=== PATIENT | female | born 1995 | race Caucasian/White ===

== ENCOUNTER 2017-08-26 10:05 | Emergency (ER) | payer OTHER ==
[~2017-08-26] VITALS: Ht 165.1 cm; Wt 107.5 kg
[~2017-08-26 10:05] MED LIST: AMOXICILLIN500 M1 PO; CHLORASEPTIC177 ML MM; CYCLOBENZAPRINE10 MG PO; FLEXERIL10 MG PO; IBUPROFEN800 MG PO; METFORMIN HCL1000 MG PO; NORCO 5-325 TA1 EACH PO; OMEPRAZOLE20 M1 PO; TYLENOL325 MG PO; XULANE PATCH1 EACH TD; ZOFRAN4 MG PO
== END 2017-08-26 11:26 | disposition home or self-care (01) ==
LOC: ED 10:05
DX: N92.1 Excessive and frequent menstruation with irregular cycle (principal); Z91.040 Latex allergy status; Z79.899 Other long term (current) drug therapy
CPT/HCPCS: 81001; 84703; 85025; 99283

== ENCOUNTER 2021-01-19 17:02 | Emergency (ER) | payer BC ==
[~2021-01-19] VITALS: Ht 165.1 cm; Wt 117.9 kg
[2021-01-19] MEDS ORDERED: MONO-LINYAH1 EACH PO (17:40)
[2021-01-19] MEDS ORDERED: JANUVIA25 MG PO (17:40)
[2021-01-19] MEDS ORDERED: LISINOPRIL20 MG PO (17:41)
[2021-01-19] MEDS ORDERED: METFORMIN HCL500 M1 PO (17:41)
[2021-01-19] MEDS ORDERED: MELOXICAM7.5 MG PO (17:47)
[2021-01-19] MEDS ORDERED: MEDROL4 M1 PO (17:47)
== END 2021-01-19 18:54 | disposition home or self-care (01) ==
LOC: ED 17:02
DX: S66.912A Strain of unspecified muscle, fascia and tendon at wrist and hand level, left hand, initial encounter (principal); X50.9XXA Other and unspecified overexertion or strenuous movements or postures, initial encounter; Z91.040 Latex allergy status; E11.9 Type 2 diabetes mellitus without complications; Z79.84 Long term (current) use of oral hypoglycemic drugs; Z79.899 Other long term (current) drug therapy; I10 Essential (primary) hypertension
CPT/HCPCS: 29125; 73130; 99283-25; J1885

== ENCOUNTER 2021-02-08 13:29 | Emergency (ER) | payer OTHER, BC ==
[~2021-02-08] VITALS: Ht 165.1 cm; Wt 117.9 kg
[~2021-02-08 13:29] MED LIST changes: +JANUVIA25 MG PO; +LISINOPRIL20 MG PO; +MEDROL4 M1 PO; +MELOXICAM7.5 MG PO; +METFORMIN HCL500 M1 PO; +MONO-LINYAH1 EACH PO
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
== END 2021-02-08 14:09 | disposition home or self-care (01) ==
LOC: ED 13:29
DX: S13.9XXA Sprain of joints and ligaments of unspecified parts of neck, initial encounter (principal); R42 Dizziness and giddiness; Z91.040 Latex allergy status; Z79.899 Other long term (current) drug therapy; Z79.84 Long term (current) use of oral hypoglycemic drugs; V47.5XXA Car driver injured in collision with fixed or stationary object in traffic accident, initial encounter
CPT/HCPCS: 99283

== ENCOUNTER 2021-05-04 21:13 | Emergency (ER) | payer SELFPAY ==
[~2021-05-04] VITALS: Ht 165.1 cm; Wt 117.9 kg
[2021-05-04] MEDS ORDERED: ONDANSETRON ODT8 MG PO (22:46)
== END 2021-05-04 22:57 | disposition home or self-care (01) ==
LOC: ED 21:13
DX: N97.0 Female infertility associated with anovulation (principal); N93.8 Other specified abnormal uterine and vaginal bleeding; E11.9 Type 2 diabetes mellitus without complications; I10 Essential (primary) hypertension; Z91.040 Latex allergy status; Z79.899 Other long term (current) drug therapy; Z79.84 Long term (current) use of oral hypoglycemic drugs
CPT/HCPCS: 80053; 84703; 85025; 86900; 86901; 99284

== ENCOUNTER 2021-08-19 09:18 | Emergency (ER) | payer BC ==
[~2021-08-19] VITALS: Ht 165.1 cm; Wt 127.0 kg
[~2021-08-19 09:18] MED LIST changes: +ONDANSETRON ODT8 MG PO
[2021-08-19] MEDS ORDERED: METFORMIN HCL850 MG PO (10:01)
[2021-08-19] MEDS ORDERED: GABAPENTIN100 MG PO (10:01)
[2021-08-19] MEDS ORDERED: JANUVIA25 MG PO (10:01)
[2021-08-19] MEDS ORDERED: AUGMENTIN 875-1 EACH PO (10:21)
== END 2021-08-19 10:50 | disposition home or self-care (01) ==
LOC: ED 09:18
DX: S61.451A Open bite of right hand, initial encounter (principal); Z23 Encounter for immunization; E11.9 Type 2 diabetes mellitus without complications; I10 Essential (primary) hypertension; E28.2 Polycystic ovarian syndrome; W53.21XA Bitten by squirrel, initial encounter; Z91.040 Latex allergy status; Z79.84 Long term (current) use of oral hypoglycemic drugs; Z79.899 Other long term (current) drug therapy
CPT/HCPCS: 90471; 90715; 99283

== ENCOUNTER 2022-07-16 07:43 | Emergency (ER) | payer BC ==
[~2022-07-16] VITALS: Ht 165.1 cm; Wt 118.9 kg
[~2022-07-16 07:43] MED LIST changes: +AUGMENTIN 875-1 EACH PO; +GABAPENTIN100 MG PO; +METFORMIN HCL850 MG PO; +TRULICITY0.75 MG/0. SQ
--- OUTSIDE RECORDS SUMMARY | 2022-07-16 07:46 | XMS ---
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 Care History Medical/Surgical 02/09/2021 [facility] - Patient is currently established with [facility]. If patient is seen in the ED during business hours. Please contact [facility] at [facility]. Care Recommendation: If this patient has had 5 or more Emergency Department visits in the last 12 months.\T\nbsp; Patient will require education on the scope and purpose of the ED as an acute care provider not a Primary Care Provider and should not be utilized for chronic conditions.\T\nbsp; These are guidelines and the provider should exercise clinical judgment when providing care. E.D. VISIT COUNT (12 MO.) 2 [facility] TOTAL 2 NOTE: Visits indicate total known visits. 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
[2022-07-16] MEDS ORDERED: CEPHALEXIN500 M1 PO (08:15)
== END 2022-07-16 08:25 | disposition home or self-care (01) ==
LOC: ED 07:43
DX: S51.851A Open bite of right forearm, initial encounter (principal); W53.21XA Bitten by squirrel, initial encounter; I10 Essential (primary) hypertension; E11.9 Type 2 diabetes mellitus without complications; Z91.040 Latex allergy status; Z79.84 Long term (current) use of oral hypoglycemic drugs; Z79.899 Other long term (current) drug therapy
CPT/HCPCS: 99283

== ENCOUNTER 2024-08-16 19:21 | Emergency (ER) | payer BC ==
[~2024-08-16] VITALS: Ht 165.1 cm; Wt 117.8 kg
[~2024-08-16 19:21] MED LIST changes: +CEPHALEXIN500 M1 PO
[2024-08-16] MEDS ORDERED: OZEMPIC1 MG/0.71 (19:49)
[2024-08-16 22:13] LABS: BILIRUBIN, URINE NEGATIVE (negative); BLOOD/HGB, URINE NEGATIVE (Negative); KETONE, URINE NEGATIVE (Negative); LEUK ESTERASE, URINE NEGATIVE (negative); NITRITE, URINE NEGATIVE (negative)
[2024-08-16] MEDS ORDERED: HYDROXYZINE HCL25 MG PO (22:14)
[2024-08-16] MEDS ORDERED: NIFEDIPINE ER30 MG PO (22:15)
[2024-08-16] MEDS ORDERED: BUPROPION XL300 MG PO (22:15)
[2024-08-16] MEDS ORDERED: ATORVASTATIN CA40 MG PO (22:15)
[2024-08-16 22:26] LABS: BASOPHILS 0.3 % (0-2); EOSINOPHILS 0.5 % (0-6); HEMATOCRIT 38.2 % (35.0-50.0); HEMOGLOBIN 13.3 g/dL (12.0-18.0); LYMPHOCYTES 19.6 % (24-44); MCH 30.9 (27-36); MCHC 34.9 g/dl (30-36); MCV 88.6 fl (81-99); MONOCYTES 4.2 % (0-12); NEUTROPHILS 75.4 % (39-80); PLATELET COUNT 295 K/uL (140-440); RBC 4.31 M/ul (4.3-5.7); RDW 14.2 (10.5-15.0)
[2024-08-16 22:41] LABS: ALBUMIN/GLOBULIN RATIO 1.14 (1.1-2.4); ANION GAP 15.7 (7-21); BILIRUBIN, TOTAL 0.3 ng/dL (0.2-1.0); BUN/CREATININE RATIO 9.45 (6.0-28.6); CALCIUM 9.2 mg/dL (8.5-10.1); CREATININE, SERUM 0.74 mg/dL (0.55-1.02); POTASSIUM 3.7 mmol/L (3.5-5.1); PROTEIN, TOTAL 7.5 g/dL (6.4-8.2)
[2024-08-17 02:02] VITALS: BP 133/88
== END 2024-08-17 02:03 | disposition home or self-care (01) ==
LOC: ED 19:21
PROVIDERS: Emergency Medicine
DX: O99.891 Other specified diseases and conditions complicating pregnancy (principal); O24.311 Unspecified pre-existing diabetes mellitus in pregnancy, first trimester; O10.911 Unspecified pre-existing hypertension complicating pregnancy, first trimester; R10.2 Pelvic and perineal pain; Z3A.00 Weeks of gestation of pregnancy not specified; Z91.040 Latex allergy status; Z91.09 Other allergy status, other than to drugs and biological substances; Z79.899 Other long term (current) drug therapy; Z79.84 Long term (current) use of oral hypoglycemic drugs
CPT/HCPCS: 36415; 76801; 76817; 80053; 81003; 83690; 84702; 84703; 85025; 99284-25